=== PATIENT | male | born 1990 | race Caucasian/White ===

== ENCOUNTER 2021-07-21 16:50 | Emergency (ER) | payer SELFPAY ==
[~2021-07-21] VITALS: Ht 182.9 cm; Wt 79.4 kg
[2021-07-21 16:50] VITALS: BP 148/95
--- NOTE | 2021-07-21 18:00 | NUR ---
PATIENT BIB [place] [employer]. PATIENT EXAMINED BY DR. PULIDO. PATIENT MEDICALLY CLEARED AND RELEASED IN CUSTODY IN STABLE CONDITION. ORIGINAL PRE-BOOK FORM GIVEN TO OFFICER ARIELLA.
[2021-07-21 18:04] VITALS: BP 148/95
--- NOTE | 2021-07-21 18:04 | NUR ---
Patient discharged with v/s stable. Written and verbal after care instructions given and explained. Patient verbalized understanding. Police with in custody. All questions addressed prior to discharge. Advised to follow up with [employer]D.
--- NOTE | 2021-07-21 18:17 | NUR ---
Chart checked and completed. The patient's care was reviewed and supervised by Vero Cain, RN, RN.
== END 2021-07-21 18:04 ==
LOC: MED 16:50
DX: F23 Brief psychotic disorder (principal)
CPT/HCPCS: 99283